=== PATIENT | male | born 1985 | race Two or more races ===

== ENCOUNTER 2018-01-25 08:07 | Day surgery (SDC) | payer OTHER ==
[2018-01-25] MEDS: SOD CHLORIDE 0.9% 1,000 ML IV ×2 (09:10→10:00)
[2018-01-25] MEDS: SOD CHLORIDE 0.9% 500 ML (09:40)
[2018-01-25] MEDS: MIDAZOLAM 1 MG/ML 2 ML INJ (10:40)
[2018-01-25] MEDS: FENTAnyl 50 MCG/ML VIAL (10:40)
[2018-01-25] MEDS: ONDANSETRON 4 MG INJ (10:40)
[2018-01-25] MEDS: LIDOCAINE 1% (MDV) 10 ML INJ (11:00)
[2018-01-25] MEDS: GELATIN 12MM X 7 MM SPONGE (11:00)
== END 2018-01-25 14:06 | disposition home or self-care (01) ==
LOC: SDS 08:07
DX: I12.9 Hypertensive chronic kidney disease with stage 1 through stage 4 chronic kidney disease, or unspecified chronic kidney disease (principal); N18.9 Chronic kidney disease, unspecified
CPT/HCPCS: 50200; 77012; 88305; 88313; 88346; 88348; 88350

== ENCOUNTER 2018-02-23 15:27 | Emergency (ER) | payer OTHER ==
[2018-02-23 18:52] LABS: ADD MAN DIFF? NO
[2018-02-23 18:55] LABS: BASOPHIL # 0.1 10^3/ul (0.0-0.1); BASOPHILS % 0.6 % (0.0-2.0); EOSINOPHILS # 0.2 10^3/ul (0.0-0.5); EOSINOPHILS % 2.2 % (0.0-7.0); HEMATOCRIT 46.2 % (42.0-52.0); HEMOGLOBIN 14.6 g/dl (14.0-18.0); LYMPHOCYTES # 3.3 10^3/ul (0.8-2.9); LYMPHOCYTES % 32.6 % (15.0-51.0); MEAN CORPUSCULAR HEMOGLOBIN 20.5 pg (29.0-33.0); MEAN CORPUSCULAR HGB CONC 31.6 g/dl (32.0-37.0); MEAN CORPUSCULAR VOLUME 64.8 fl (82.0-101.0); MONOCYTE # 0.8 10^3/ul (0.3-0.9); MONOCYTES % 8.4 % (0.0-11.0); NEUTROPHIL # 5.6 10^3/ul (1.6-7.5); NEUTROPHILS % 55.6 % (39.0-77.0); PLATELET COUNT 263 10^3/UL (140-415); RED BLOOD COUNT 7.13 10^6/ul (4.70-6.10); RED CELL DISTRIBUTION WIDTH 17.3 % (11.5-14.5)
[2018-02-23 19:12] LABS: ANION GAP 8 (8-16); BLOOD UREA NITROGEN 22 mg/dl (7-20); CALCIUM 8.3 mg/dl (8.4-10.2); CARBON DIOXIDE 26 mmol/L (21-31); CHLORIDE 107 mmol/L (97-110); CREATININE 1.08 mg/dl (0.61-1.24); GLUCOSE 104 mg/dl (70-220); MAGNESIUM 1.9 mg/dl (1.7-2.5); PHOSPHORUS 5.3 mg/dl (2.5-4.9); SODIUM 137 mmol/L (135-144)
[2018-02-23] MEDS: SOD CHLORIDE 0.9% 1,000 ML IV (19:22)
[2018-02-23 19:30] LABS: ADD UMIC YES; UR ASCORBIC ACID NEGATIVE (NEGATIVE); UR BILIRUBIN (Dip) NEGATIVE (NEGATIVE); UR BLOOD (Dip) 3+ mg/dL (NEGATIVE); UR CLARITY SLIGHTLY CLOUDY (CLEAR); UR COLOR YELLOW (YELLOW); UR GLUCOSE (Dip) 1+ mg/dL (NEGATIVE); UR KETONES (Dip) NEGATIVE (NEGATIVE); UR LEUKOCYTE ESTERASE (Dip) NEGATIVE Leu/ul (NEGATIVE); UR MUCUS FEW /HPF (NONE SEEN); UR NITRITE (Dip) NEGATIVE (NEGATIVE); UR RBC 7 /HPF (0-5); UR SPECIFIC GRAVITY (Dip) 1.017 (1.003-1.030); UR TOTAL PROTEIN (Dip) 3+ mg/dl (NEGATIVE); UR UROBILINOGEN (Dip) NEGATIVE (NEGATIVE); UR WBC 3 /HPF (0-5)
[2018-02-23] MEDS: LISINOPRIL 20 MG TAB PO (22:04)
== END 2018-02-23 22:33 | disposition home or self-care (01) ==
LOC: E/R 15:27
DX: I86.1 Scrotal varices (principal); N04.9 Nephrotic syndrome with unspecified morphologic changes; I10 Essential (primary) hypertension
CPT/HCPCS: 74176; 76870; 80048; 81001; 83735; 84100; 85025; 99285-25